=== PATIENT | male | born 1980 | race Caucasian/White ===

== ENCOUNTER 2017-05-05 18:50 | Emergency (ER) | payer OTHER ==
[~2017-05-05] VITALS: Ht 167.6 cm; Wt 79.4 kg
[~2017-05-05 18:50] MED LIST: ACETAMINOPHEN-1 EAC1 PO; AFRIN15 ML NASAL; CLEOCIN HCL150 MG PO; HYDROCORTISONE3011 TP; IBUPROFEN 800800 M1 PO; IBUPROFEN200 M2 PO; LIDOCAINE VISC100 M1 SWISH&SPIT; NOHOMEMEDICATIONS; PEPCID40 MG PO; PREDNISONE 20 M20 M1 PO; PREDNISONE 20 M20 MG PO; PREDNISONE50 MG PO; PROMETHAZINE D480 ML PO; TRIAMCINOLONE A15 G1 TP; TRIAMCINOLONE A80 G2 TOP; ULTRAM 50MG TAB50 MG PO; ZOFRAN ODT4 MG PO; ZPAK PO
[2017-05-05] MEDS ORDERED: IBUPROFEN 800800 M1 PO (19:06)
[2017-05-05] MEDS ORDERED: LIDOCAINE VISC100 ML SWISH&SPIT (19:08)
[2017-05-05] MEDS ORDERED: CLEOCIN HCL150 MG PO (19:18)
[2017-05-05 19:47] VITALS: BP 145/105
== END 2017-05-05 19:48 | disposition home or self-care (01) ==
LOC: M.ERS 18:50
DX: K08.89 Other specified disorders of teeth and supporting structures (principal); F17.210 Nicotine dependence, cigarettes, uncomplicated; Z88.0 Allergy status to penicillin; Z88.8 Allergy status to other drugs, medicaments and biological substances

== ENCOUNTER 2018-02-05 12:35 | Emergency (ER) | payer OTHER ==
[~2018-02-05] VITALS: Ht 167.6 cm; Wt 88.0 kg
[~2018-02-05 12:35] MED LIST changes: +LIDOCAINE VISC100 ML SWISH&SPIT
[2018-02-05 13:14] LABS: HEMATOCRIT 39.5 % (42.0-52.0); HEMOGLOBIN 13.1 gm/dL (14.0-18.0); MCH 30.7 pg (26.0-34.0); MCHC 33.2 g/dL (28.0-37.0); MCV 92.5 fL (80.0-100.0); MPV 8.2 fl. (7.2-11.1); NUCLEATED RBCS 0 /100WBC; PLATELET COUNT* 240 thou/uL (150-400); RBC 4.27 mil/uL (4.50-6.00); RDW-CV 13.1 % (10.5-14.5); WBC 14.3 thou/uL (4.0-11.0)
[2018-02-05 13:28] LABS: CALCIUM 8.6 mg/dL (8.5-10.1); CREATININE 1.2 mg/dL (0.6-1.3)
[2018-02-05 13:32] LABS: ABSOLUTE LYMPHOCYTES 0.9 thou/uL (0.8-5.3); ABSOLUTE MONOCYTES 1.1 thou/uL (0.0-1.2); ABSOLUTE NEUTROPHILS 12.3 thou/uL (1.6-8.1); ATYPICAL LYMPHS 1 %
[2018-02-05 13:33] LABS: ALBUMIN 3.3 g/dL (3.4-5.0); PLATELET ESTIMATE ADEQUATE; TOTAL BILIRUBIN 0.3 mg/dL (<0.1-1.0)
[2018-02-05] MEDS ORDERED: NORCO 5-325 TA1 EACH PO (15:33)
[2018-02-05] MEDS ORDERED: CLEOCIN HCL150 MG PO (15:33)
[2018-02-05] MEDS ORDERED: CLINDAMYCIN HC300 MG PO (15:39)
[2018-02-05 16:40] VITALS: BP 124/85
== END 2018-02-05 16:40 | disposition home or self-care (01) ==
LOC: M.ERS 12:35
PROVIDERS: Nurse Practitioner Family
DX: K04.7 Periapical abscess without sinus (principal); F17.210 Nicotine dependence, cigarettes, uncomplicated; Z88.0 Allergy status to penicillin; Z91.048 Other nonmedicinal substance allergy status

== ENCOUNTER 2018-02-07 15:47 | Emergency (ER) | payer OTHER ==
[~2018-02-07] VITALS: Ht 172.7 cm; Wt 90.7 kg
[~2018-02-07 15:47] MED LIST changes: +CLINDAMYCIN HC300 MG PO; +NORCO 5-325 TA1 EACH PO
[2018-02-07 16:15] LABS: ABSOLUTE BASOPHILS 0.2 thou/uL (0.0-0.2); ABSOLUTE LYMPHOCYTES 2.9 thou/uL (0.8-5.3); ABSOLUTE MONOCYTES 2.9 thou/uL (0.0-1.2); ABSOLUTE NEUTROPHILS 12.5 thou/uL (1.6-8.1); BASOPHILS 0.8 %; EOSINOPHILS 0.1 %; HEMATOCRIT 38.5 % (42.0-52.0); HEMOGLOBIN 12.8 gm/dL (14.0-18.0); LYMPHOCYTES 15.8 %; MCH 30.7 pg (26.0-34.0); MCHC 33.4 g/dL (28.0-37.0); MCV 92.1 fL (80.0-100.0); MONOCYTES 15.5 %; MPV 7.7 fl. (7.2-11.1); NUCLEATED RBCS 0 /100WBC; PLATELET COUNT* 338 thou/uL (150-400); POLYS 67.8 %; RBC 4.18 mil/uL (4.50-6.00); RDW-CV 13.7 % (10.5-14.5); WBC 18.5 thou/uL (4.0-11.0)
[2018-02-07 16:19] LABS: CALCIUM 8.9 mg/dL (8.5-10.1); CREATININE 1.1 mg/dL (0.6-1.3)
[2018-02-07 16:21] LABS: POTASSIUM 2.9 mmol/L (3.5-5.1)
[2018-02-07 16:24] LABS: ALBUMIN 3.1 g/dL (3.4-5.0); TOTAL BILIRUBIN 0.4 mg/dL (<0.1-1.0); TOTAL PROTEIN 7.1 g/dL (6.4-8.2)
[2018-02-07 18:50] VITALS: BP 131/66
== END 2018-02-07 18:59 | disposition short-term general hospital (02) ==
LOC: M.ERS 15:47
PROVIDERS: Nurse Practitioner Family
DX: K04.7 Periapical abscess without sinus (principal); M27.2 Inflammatory conditions of jaws; F17.210 Nicotine dependence, cigarettes, uncomplicated; Z88.0 Allergy status to penicillin; Z88.8 Allergy status to other drugs, medicaments and biological substances

== ENCOUNTER 2018-07-12 01:44 | Emergency (ER) | payer OTHER ==
[~2018-07-12] VITALS: Ht 167.6 cm; Wt 86.2 kg
[2018-07-12 02:35] LABS: HEMATOCRIT 46.4 % (42.0-52.0); HEMOGLOBIN 15.4 gm/dL (14.0-18.0); MCH 29.9 pg (26.0-34.0); MCHC 33.2 g/dL (28.0-37.0); MCV 90.2 fL (80.0-100.0); MPV 7.9 fl. (7.2-11.1); NUCLEATED RBCS 0 /100WBC; PLATELET COUNT* 343 thou/uL (150-400); RBC 5.15 mil/uL (4.50-6.00); RDW-CV 13.4 % (10.5-14.5); WBC 19.1 thou/uL (4.0-11.0)
[2018-07-12 02:51] LABS: ALKALINE PHOSPHATASE 57 U/L (46-116); ANION GAP 9 mmol/L (7-16); BUN 18 mg/dL (7-18); CALCIUM 8.8 mg/dL (8.5-10.1); CHLORIDE 103 mmol/L (98-107); CO2 27 mmol/L (21-32); CREATININE 1.2 mg/dL (0.6-1.3); GLUCOSE 128 mg/dL (70-99); LIPASE 133 U/L (73-393); POTASSIUM 3.4 mmol/L (3.5-5.1); SGOT 18 U/L (15-37); SGPT 24 U/L (30-65); SODIUM 139 mmol/L (136-145); TOTAL BILIRUBIN 0.8 mg/dL (<0.1-1.0); TOTAL PROTEIN 7.4 g/dL (6.4-8.2); TROPONIN-I LEVEL <0.06 ng/mL (<0.06)
[2018-07-12 04:30] VITALS: BP 142/82
[2018-07-12 05:23] LABS: ABSOLUTE LYMPHOCYTES 1.1 thou/uL (0.8-5.3); ABSOLUTE MONOCYTES 0.6 thou/uL (0.0-1.2); ABSOLUTE NEUTROPHILS 17.4 thou/uL (1.6-8.1); ANISOCYTOSIS 1+; PLATELET ESTIMATE ADEQUATE; POIKILOCYTOSIS 1+
--- NOTE | 2018-07-12 17:43 | EKG ---
[place] [address] ELECTROCARDIOGRAM REPORT Name: DUY ARTHUR Room: [facility]#: [id number] Admission: 07/12/18 Attend Phys: Discharge: 07/12/18 Date of : 84 Report #: [id number] THIS REPORT FOR: //name// [facility] ED Test Date: 2018-07-12 Test Time: 02:43:06 Pat Name: DUY ARTHUR Department: Room: Gender: Security System Installer: Gisele CURTIS : 1980 Requested By: John Rojo Order Number: [id number] MD: Luis Ambriz Measurements Intervals [place] Rate: 97 P: 66 DC: 130 QRS: 54 QRSD: 86 T: 16 QT: 372 QTc: 473 Interpretive Statements Sinus tachycardia Unifocal premature ventricular contractions Borderline T wave abnormalities Borderline prolonged QT interval No previous ECG available for comparison Electronically Signed On 07-12-2018 17:42:48 CDT by Luis Ambriz [email or web address] <ELECTRONICALLY SIGNED> By: Luis Ambriz MD, [facility] 07/12/18 [id number] Luis Ambriz MD, FACC /EPI
== END 2018-07-12 04:30 | disposition left against medical advice (07) ==
LOC: M.ERS 01:44
PROVIDERS: Emergency Medicine Emergency Medical Services
DX: Q53.112 Unilateral inguinal testis (principal); Z88.0 Allergy status to penicillin; F17.210 Nicotine dependence, cigarettes, uncomplicated

== ENCOUNTER 2019-06-08 20:09 | Emergency (ER) | payer OTHER ==
[~2019-06-08] VITALS: Ht 167.6 cm; Wt 68.0 kg
[2019-06-08 22:15] VITALS: BP 134/78
== END 2019-06-08 22:19 | disposition home or self-care (01) ==
LOC: M.ERS 20:09
DX: S00.83XA Contusion of other part of head, initial encounter (principal); F17.210 Nicotine dependence, cigarettes, uncomplicated; Z88.0 Allergy status to penicillin; Z91.041 Radiographic dye allergy status; Z91.048 Other nonmedicinal substance allergy status; Y08.89XA Assault by other specified means, initial encounter; Y93.89 Activity, other specified; Y92.89 Other specified places as the place of occurrence of the external cause; Y99.8 Other external cause status

== ENCOUNTER 2021-02-25 12:47 | Emergency (ER) | payer OTHER, MEDICAID ==
[~2021-02-25] VITALS: Ht 167.6 cm; Wt 93.0 kg
[2021-02-25] MEDS ORDERED: CIPRO500 M1 PO (13:32)
[2021-02-25 13:40] VITALS: BP 146/86
== END 2021-02-25 13:41 | disposition home or self-care (01) ==
LOC: M.ERS 12:47
DX: N45.1 Epididymitis (principal); F17.210 Nicotine dependence, cigarettes, uncomplicated; Z88.0 Allergy status to penicillin